=== PATIENT | female | born 1995 | race Caucasian/White ===

== ENCOUNTER 2017-05-17 15:21 | Emergency (ER) | payer MEDICAID ==
[~2017-05-17] VITALS: Ht 162.6 cm; Wt 5.0 kg
--- NOTE | 2017-05-17 15:37 | PHYS DOC ---
Adult General Chief Complaint Chief Complaint: ABSCESS HPI HPI Patient is a 21 year old female presents to the ED complaining of abscess x 1 week. States she has one on her left arm and one on her stomach. States it was open and draining but it has dried up. States she started taking clindamycin and noticed some improvement. Describes the pain as sharp. Rates the pain as 6/ 10. Denies fever, n/v, abdominal pain, weakness, chest pain, shortness of breath , night sweats or dizziness. Review of Systems Review of Systems Constitutional: Denies fever or chills [] Eyes: Denies change in visual acuity, redness, or eye pain [] HENT: Denies nasal congestion or sore throat [] Respiratory: Denies cough or shortness of breath [] Cardiovascular: No additional information not addressed in HPI [] GI: Denies abdominal pain, nausea, vomiting, bloody stools or diarrhea [] : Denies dysuria or hematuria [] Musculoskeletal: Denies back pain or joint pain [] Integument: Denies rash or skin lesions [] Neurologic: Denies headache, focal weakness or sensory changes [] Endocrine: Denies polyuria or polydipsia [] All other systems were reviewed and found to be within normal limits, except as documented in this note. Current Medications Current Medications Current Medications Medications (Trade) Dose Ordered Sig/Yimi Start Time Stop Time Status Last Admin Dose Admin Clindamycin Phosphate 50 ml @ 100 mls/hr 1X ONCE 05/17/17 16:30 05/17/17 16:59 DC 05/17/17 16:29 100 MLS/HR Sodium Chloride 1,000 ml @ 1,000 mls/hr 1X ONCE 05/17/17 16:15 05/17/17 17:14 DC 05/17/17 16:29 1,000 MLS/HR Allergies Allergies Allergies Coded Allergies Type Severity Reaction Last Updated Verified No Known Drug Allergies 05/17/17 No Physical Exam Physical Exam Constitutional: Well developed, well nourished, no acute distress, non-toxic appearance. [] HENT: Normocephalic, atraumatic. Eyes: PERRLA, EOMI, conjunctiva normal, no discharge. [] Cardiovascular:Heart rate regular rhythm, no murmur [] Lungs & Thorax: Bilateral breath sounds clear to auscultation [] Abdomen: Bowel sounds normal, soft, no tenderness, no masses, no pulsatile masses. [] Skin: Warm, dry, 3X1 CM cellulitis to left antecubital fossa and 2x1 CM cellulitis to upper umbilicus. No abscess or fluctuance. No expressible discharge. [] Back: No tenderness, no CVA tenderness. [] Extremities: No tenderness, no cyanosis, no clubbing, ROM intact, no edema. [] Neurologic: Alert and oriented X 3, normal motor function, normal sensory function, no focal deficits noted. [] Psychologic: Affect normal, judgement normal, mood normal. [] Current Patient Data Vital Signs Vital Signs Date Time Temp Pulse Resp B/P (MAP) Pulse Ox O2 Delivery O2 Flow Rate FiO2 05/17/17 16:30 130 18 99 Room Air 05/17/17 15:49 98.5 98.5 Lab Values Laboratory Tests Test 05/17/17 16:20 White Blood Count 7.5 x10^3/uL (4.0-11.0) Red Blood Count 5.00 x10^6/uL (3.50-5.40) Hemoglobin 14.6 g/dL (12.0-15.5) Hematocrit 44.5 % (36.0-47.0) Mean Corpuscular Volume 89 fL (79-100) Mean Corpuscular Hemoglobin 29 pg (25-35) Mean Corpuscular Hemoglobin Concent 33 g/dL (31-37) Red Cell Distribution Width 15.2 % (11.5-14.5) H Platelet Count 249 x10^3/uL (140-400) Sodium Level 137 mmol/L (136-145) Potassium Level 3.7 mmol/L (3.5-5.1) Chloride Level 100 mmol/L (98-107) Carbon Dioxide Level 26 mmol/L (21-32) Anion Gap 11 (6-14) Blood Urea Nitrogen 13 mg/dL (7-20) Creatinine 1.0 mg/dL (0.6-1.0) Estimated GFR (Cockcroft-Gault) 70.0 BUN/Creatinine Ratio 13 (6-20) Glucose Level 100 mg/dL (70-99) H Lactic Acid Level 0.8 mmol/L (0.4-2.0) Calcium Level 9.5 mg/dL (8.5-10.1) Total Bilirubin 0.4 mg/dL (0.2-1.0) Aspartate Amino Transferase (AST) 26 U/L (15-37) Alanine Aminotransferase (ALT) 28 U/L (14-59) Alkaline Phosphatase 83 U/L (46-116) C-Reactive Protein, Quantitative 0.9 mg/L (0-3.3) Total Protein 7.6 g/dL (6.4-8.2) Albumin 4.0 g/dL (3.4-5.0) Albumin/Globulin Ratio 1.1 (1.0-1.7) Laboratory Tests 05/17/17 16:20 Laboratory Tests 05/17/17 16:20 EKG EKG [] Radiology/Procedures Radiology/Procedures [] Course & Med Decision Making Course & Med Decision Making Pertinent Labs and Imaging studies reviewed. (See chart for details) 16:15 Received patient from Juan Antonio DIAZ. 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 Patient waiting for labs. WBC is normal. Lactic is normal. BMP with no acute findings. Left elbow x-ray interpreted by radiologist are negative for any acute findings. Patient's infection appears to be superficial. Will be discharged with clindamycin first dose given in the ED by IV. Her heart rate was in the 130s on arrival to the ED. She is on her second liter of fluids heart rate has come down to 107 when I saw patient at 1740. She does not appear septic. She states her tetanus is up-to-date. She was instructed to follow-up with her PCP in [place], [place]. Provided return precautions and discharged in stable condition. Dragon Disclaimer Dragon Disclaimer This electronic medical record was generated, in whole or in part, using a voice recognition dictation system. Departure Departure Impression: Primary Impression: Cellulitis of left forearm Additional Impression: Cellulitis of umbilicus Patient Instructions: Cellulitis Additional Instructions: You were seen with cellulitis infection of the left forearm and umbilicus. Keep the affected areas clean and dry. Take the prescribed antibiotics until completed. Follow-up with the primary care doctor in the next 1 week. Come back to the ED at any point symptoms worsen. Scripts Clindamycin Hcl (CLINDAMYCIN HCL) 150 Mg Capsule 3 CAP PO TID, #90 CAP Prov: ABAD IZQUIERDO APRN 05/17/17 Problem Qualifiers JUAN ANTONIO GOMES May 17, 2017 15:37 ABAD IZQUIERDO APRN May 17, 2017 17:46
[2017-05-17 15:49] VITALS: BP 159/96
[2017-05-17] MEDS ORDERED: IV NORMAL SALINE 1000ML BAG 1,000 ML IV ONE ×2 (16:15→16:30)
[2017-05-17 16:30] LABS: HEMATOCRIT 44.5 % (36.0-47.0); HEMOGLOBIN 14.6 g/dL (12.0-15.5); RED CELL DISTRIBUTION WIDTH 15.2 % (11.5-14.5); WHITE BLOOD COUNT 7.5 x10^3/uL (4.0-11.0)
[2017-05-17] MEDS ORDERED: CLINDAMYCIN 600MG PREMIX 50 ML IV ONE (16:30)
[2017-05-17 16:45] LABS: CALCIUM 9.5 mg/dL (8.5-10.1); POTASSIUM 3.7 mmol/L (3.5-5.1)
[2017-05-17 16:51] LABS: ALBUMIN/GLOBULIN RATIO 1.1 (1.0-1.7); TOTAL BILIRUBIN 0.4 mg/dL (0.2-1.0); TOTAL PROTEIN 7.6 g/dL (6.4-8.2)
--- NOTE | 2017-05-17 16:58 | RAD ---
Examination: 3 views of the left elbow History: History of abscess Comparison: None available Findings: The alignment of the elbow joint grossly appears unremarkable. There is no obvious acute osseous findings identified. Impression: No acute osseous findings.
[2017-05-17] MEDS ORDERED: CLIN150C14 PO (17:46)
== END 2017-05-17 18:00 | disposition home or self-care (01) ==
LOC: ER 15:21
DX: L03.114 Cellulitis of left upper limb (principal); L03.316 Cellulitis of umbilicus
CPT/HCPCS: 36415; 73080; 80053; 83605; 85027; 85651; 86140; 87040; 96365; 99285; J3490; J7030